=== PATIENT | male | born 1970 | race Caucasian/White ===

== ENCOUNTER → 2017-04-29 | Outpatient (CLI) | payer BC ==
[~2017-04-29] MED LIST: ZOLOFT 100MG100 MG PO
== END ==
LOC: COL.RAD 07:02
DX: K85.90 Acute pancreatitis without necrosis or infection, unspecified (principal)

== ENCOUNTER 2019-12-02 16:42 | Emergency (ER) | payer BC ==
[~2019-12-02] VITALS: Ht 180.3 cm; Wt 77.3 kg
[2019-12-02 16:43] VITALS: TEMP 98.1
[2019-12-02] MEDS ORDERED: CLARITIN D TAB1 TAB PO (16:48)
[2019-12-02] MEDS ORDERED: PRILOSEC 20MG20 MG PO (16:49)
[2019-12-02 17:41] LABS: ALANINE AMINOTRANSFERASE 22 U/L (4-49); ALBUMIN 3.6 gm/dL (3.5-5.0); ALKALINE PHOSPHATASE 55 U/L (50-136); ANION GAP 6 mmol/L (7-16); AST,SGOT 26 U/L (15-37); BILIRUBIN,TOTAL 0.7 mg/dL (0.0-1.0); BLOOD UREA NITROGEN 10 mg/dL (9-20); CALCIUM 8.4 mg/dL (8.4-10.2); CARBON DIOXIDE 23 mmol/L (22-30); CHLORIDE 109 mmol/L (98-107); CREATININE, serum 1.08 (0.66-1.25); GLUCOSE 107 mg/dL (74-106); POTASSIUM 3.7 mmol/L (3.4-5.0); SODIUM 139 mmol/L (137-145); TOTAL PROTEIN 6.4 gm/dL (6.4-8.2)
[2019-12-02 17:44] LABS: C-REACTIVE PROTEIN < 0.5 mg/dL (0.0-0.9)
[2019-12-02 17:53] LABS: BASO # 0.1 (0.0-0.2); BASO % 1.3 % (0.0-2.0); EOS # 0.1 (0.0-0.7); EOS % 1.2 % (0-4.0); GRAN # 3.8 (1.4-6.5); GRAN % 63.3 % (42.2-75.2); HEMOGLOBIN 12.1 g/dl (13.5-18.0); LYMPH # 1.5 (1.2-3.4); LYMPH % 25.6 % (20.0-51.0); MEAN CELL VOLUME 89 fl (80.0-100.0); MEAN CORPUSCULAR HEMOGLOBIN 29 pg (27.0-31.0); MEAN CORPUSCULAR HGB CONC 33 g/dl (33.0-37.0); MEAN PLATELET VOLUME 10.5 fl (7.4-10.4); MONO # 0.5 (0.1-0.6); MONO % 8.3 % (1.7-9.3); PLATELET COUNT 250 K/mm3 (130-400); RED BLOOD COUNT 4.14 M/mm3 (4.20-5.60); REDCELL DISTRIBUTION WIDTH-CV 12.7 % (11.5-14.5)
[2019-12-02 17:54] LABS: HEMATOCRIT 36.9 % (42.0-52.0); TROPONIN-I < 0.012 ng/mL (0.000-0.035)
[2019-12-02 18:26] VITALS: BP 145/95; PULSE 81
== END 2019-12-02 18:26 | disposition home or self-care (01) ==
LOC: COL.ER 16:42
PROVIDERS: Emergency Medicine
DX: R55 Syncope and collapse (principal); R51 Headache; F32.9 Major depressive disorder, single episode, unspecified; F17.220 Nicotine dependence, chewing tobacco, uncomplicated
CPT/HCPCS: J2405; J7030

== ENCOUNTER 2019-12-04 10:32 | Emergency (ER) | payer BC ==
[~2019-12-04] VITALS: Ht 180.3 cm; Wt 77.1 kg
[~2019-12-04 10:32] MED LIST changes: +CLARITIN D TAB1 TAB PO; +PRILOSEC 20MG20 MG PO
[2019-12-04 12:41] LABS: BASO % 0.4 % (0.0-2.0); GRAN # 8.6 (1.4-6.5); GRAN % 88.7 % (42.2-75.2); HEMATOCRIT 44.4 % (42.0-52.0); LYMPH # 0.6 (1.2-3.4); MEAN CELL VOLUME 90 fl (80.0-100.0); MEAN CORPUSCULAR HEMOGLOBIN 29 pg (27.0-31.0); MEAN CORPUSCULAR HGB CONC 32 g/dl (33.0-37.0); MEAN PLATELET VOLUME 10.5 fl (7.4-10.4); MONO # 0.4 (0.1-0.6); MONO % 4.4 % (1.7-9.3); PLATELET COUNT 273 K/mm3 (130-400); RED BLOOD COUNT 4.94 M/mm3 (4.20-5.60); REDCELL DISTRIBUTION WIDTH-CV 12.8 % (11.5-14.5)
[2019-12-04 12:44] LABS: ALANINE AMINOTRANSFERASE 23 U/L (4-49); ALBUMIN 4.4 gm/dL (3.5-5.0); ALKALINE PHOSPHATASE 63 U/L (50-136); ANION GAP 8 mmol/L (7-16); AST,SGOT 28 U/L (15-37); BILIRUBIN,TOTAL 1.5 mg/dL (0.0-1.0); BLOOD UREA NITROGEN 12 mg/dL (9-20); CALCIUM 9.6 mg/dL (8.4-10.2); CARBON DIOXIDE 26 mmol/L (22-30); CHLORIDE 104 mmol/L (98-107); GLUCOSE 124 mg/dL (74-106); LIPASE 75 U/L (23-300); POTASSIUM 4.3 mmol/L (3.4-5.0); SODIUM 138 mmol/L (137-145); TOTAL PROTEIN 7.8 gm/dL (6.4-8.2)
[2019-12-04 12:45] LABS: ALCOHOL(ethanol),MEDICAL < 10 mg/dL
[2019-12-04 12:50] LABS: HEMOGLOBIN 14.4 g/dl (13.5-18.0)
[2019-12-04 12:58] VITALS: TEMP 101.4
[2019-12-04 13:15] LABS: COLLECTION METHOD CLEAN CATCH
[2019-12-04 13:24] LABS: MUCOUS Present /lpf; PH 5 (5-8); SQUAMOUS EPITHELIAL None Seen /hpf; URINE APPEARANCE Clear; URINE BACTERIA None Seen /hpf; URINE BILIRUBIN Negative (NEGATIVE); URINE BLOOD Negative (NEGATIVE); URINE COLOR Yellow; URINE GLUCOSE Negative (NEGATIVE); URINE KETONE 1+ (NEGATIVE); URINE LEUKOCYTE ESTERASE Negative (NEGATIVE); URINE NITRATE Negative (NEGATIVE); URINE PROTEIN(semi-quant) 1+ (NEGATIVE); URINE RBC 0-2 /hpf; URINE UROBILINOGEN Negative (NEGATIVE)
[2019-12-04 14:55] VITALS: BP 143/78; PULSE 69
== END 2019-12-04 15:10 | disposition short-term general hospital (02) ==
LOC: COL.ER 10:32
PROVIDERS: Emergency Medicine
DX: I63.9 Cerebral infarction, unspecified (principal); Z20.828 Contact with and (suspected) exposure to other viral communicable diseases
CPT/HCPCS: J1885; J2060; J2550; J7030

== ENCOUNTER 2020-03-12 06:34 | Outpatient (CLI) | payer BC ==
[~2020-03-12] VITALS: Ht 180.3 cm; Wt 83.8 kg
[2020-03-12] MEDS ORDERED: LIPITOR 40MG TA40 MG PO (06:48)
[2020-03-12] MEDS ORDERED: ZYRTEC 10MG10 MG PO (06:48)
[2020-03-12] MEDS ORDERED: COZAAR 25MG25 MG/TAB PO (06:49)
[2020-03-12] MEDS ORDERED: NORVASC 5MG5 MG/TAB PO (06:49)
[2020-03-12] MEDS ORDERED: PLAVIX 75MG TAB75 MG PO (06:49)
[2020-03-12 07:05] LABS: HEMATOCRIT 42.7 % (42.0-52.0); HEMOGLOBIN 14.1 g/dl (13.5-18.0); MEAN CELL VOLUME 89 fl (80.0-100.0); MEAN CORPUSCULAR HEMOGLOBIN 29 pg (27.0-31.0); MEAN CORPUSCULAR HGB CONC 33 g/dl (33.0-37.0); MEAN PLATELET VOLUME 9.7 fl (7.4-10.4); PLATELET COUNT 294 K/mm3 (130-400); RED BLOOD COUNT 4.81 M/mm3 (4.20-5.60); REDCELL DISTRIBUTION WIDTH-CV 12.8 % (11.5-14.5)
[2020-03-12 07:10] LABS: INR 0.9 (0.8-3.0); PROTHROMBIN TIME 10.5 SECONDS (9.7-12.8)
[2020-03-12 07:26] LABS: CALCIUM 9.1 mg/dL (8.4-10.2); CREATININE, serum 1.05 (0.66-1.25); POTASSIUM 4.3 mmol/L (3.4-5.0)
[2020-03-12 08:09] VITALS: BP 122/85; PULSE 73; TEMP 98.3
[2020-03-12 09:30] VITALS: BP 132/78; PULSE 71; TEMP 98.3
--- NOTE | 2020-03-12 09:30 | NUR ---
REport from [facility] . VSS. Team in placing Loop Recorder
[2020-03-12 09:45] VITALS: BP 125/74; PULSE 75; TEMP 98.3
[2020-03-12 10:00] VITALS: BP 117/73; PULSE 72; TEMP 98.3
[2020-03-12 10:30] VITALS: BP 123/77; PULSE 68; TEMP 98.3
--- NOTE | 2020-03-12 10:30 | NUR ---
INT discontinued intact. Loop recorder incision site CD&I.
--- NOTE | 2020-03-12 10:45 | NUR ---
Discharge instructions given. Transferred to private car by [facility]
== END 2020-03-12 10:45 | disposition home or self-care (01) ==
LOC: COL.RAD 06:34
PROVIDERS: Internal Medicine Adult Congenital Heart Disease
DX: I63.9 Cerebral infarction, unspecified (principal)
CPT/HCPCS: J2704; J7030